=== PATIENT | male | born 1945 | race Caucasian/White ===

== ENCOUNTER 2022-10-29 07:14 | Emergency (ER) | payer MEDICARE, OTHER ==
[~2022-10-29] VITALS: Ht 177.8 cm; Wt 83.5 kg
--- NOTE | 2022-10-29 07:30 | NUR ---
RECEIVED PT 76 YRS male came by [place] from [facility] s/p fell down today and hitr lashay rojas
--- NOTE | 2022-10-29 07:45 | NUR ---
LT EYE LAURI AND JAE AROUND
--- NOTE | 2022-10-29 08:45 | NUR ---
TO CT GALLAGHER OF HEAD VIA [facility] VS
--- NOTE | 2022-10-29 09:31 | NUR ---
[facility] CALLED FOR TRANSPORT ETA 45 MINS PER TENZIN.
--- NOTE | 2022-10-29 10:08 | NUR ---
Patient discharged to home in stable condition. Written and verbal after care instructions given. Patient verbalizes understanding of instruction.
[2022-10-29 10:22] VITALS: BP 153/97
== END 2022-10-29 10:22 | disposition home or self-care (01) ==
LOC: ER 07:16
DX: S00.83XA Contusion of other part of head, initial encounter (principal); S49.92XA Unspecified injury of left shoulder and upper arm, initial encounter; I25.2 Old myocardial infarction; I10 Essential (primary) hypertension; E11.9 Type 2 diabetes mellitus without complications; Z88.0 Allergy status to penicillin; W07.XXXA Fall from chair, initial encounter; Y93.84 Activity, sleeping; Y92.89 Other specified places as the place of occurrence of the external cause; Y99.8 Other external cause status
CPT/HCPCS: 70450-TC; 71045-TC; 72125-TC; 73030-TC

== ENCOUNTER 2022-11-12 15:54 | Emergency (ER) | payer MEDICARE, OTHER ==
[~2022-11-12] VITALS: Ht 170.2 cm; Wt 79.8 kg
--- NOTE | 2022-11-12 16:33 | NUR ---
[id number] frm [facility] [address] c/o worsening Groin area pain. noted facial bruising from a previous fall. On room air, breathing evenly and unlabored. Kept comfortable will continue to monitor accordingly.
[2022-11-12 17:22] LABS: ALANINE AMINOTRANSFERASE 18 U/L (12-78); ALBUMIN 3.4 g/dL (3.4-5.0); ALKALINE PHOSPHATASE 105 U/L (46-116); ASPARTATE AMINOTRANSFERASE 24 U/L (15-37); BILIRUBIN,TOTAL 1.2 mg/dL (0.2-1.0); CALCIUM, SERUM 8.5 mg/dL (8.5-10.1); CARBON DIOXIDE 27 mmol/L (21-32); CHLORIDE 104 mmol/L (98-107); CREATININE 1.7 mg/dL (0.6-1.3); GLUCOSE 131 mg/dL (74-106); LIPASE 215 U/L (73-393); POTASSIUM 3.9 mmol/L (3.5-5.1); SODIUM SERUM 138 mmol/L (136-145); TOTAL PROTEIN, SERUM 6.7 g/dL (6.4-8.2); UREA NITROGEN, BLOOD 27 mg/dL (7-18)
[2022-11-12] MEDS ORDERED: IOHEXOL-300 100 ML VIAL IV ONE (17:39)
[2022-11-12] MEDS ORDERED: IV NS 0.9% 250 ML IV ONE (17:39)
[2022-11-12] MEDS ORDERED: IV NS 0.9% 1,000 ML IV ONE (18:00)
[2022-11-12 18:02] LABS: EOSINOPHILS % (AUTO) 1.1 % (0.0-6.0); HEMATOCRIT 36 % (39-51); LYMPHOCYTES # (AUTO) 0.5 K/uL (0.8-4.8); LYMPHOCYTES % (AUTO) 6.6 % (20.0-44.0); MEAN CORPUSCULAR HGB CONC 33 g/dl (31.0-36.0); MEAN CORPUSCULAR VOLUME 94 fL (80-96); MONOCYTES # (AUTO) 0.3 K/uL (0.1-1.30); MONOCYTES % (AUTO) 3.8 % (2.0-12.0); NEUTROPHILS # (AUTO) 6.4 K/uL (1.8-8.9); NEUTROPHILS % (AUTO) 88.5 % (43.0-81.0); PLATELET COUNT (AUTO) 205 K/uL (150-450); RED BLOOD CELL COUNT(AUTO) 3.87 MIL/uL (4.5-6.0); WHITE BLOOD COUNT (AUTO) 7.3 K/uL (4.3-11.0)
[2022-11-12 21:46] LABS: LYMPHOCYTES % (MANUAL) 15 % (16-48); MONOCYTES % (MANUAL) 7 % (0-11.0); NEUTROPHILS % (MANUAL) 78 (42-76)
[2022-11-12] MEDS ORDERED: LIDOCAINE 2% JEL UROJET 10 ML MM ONE (21:49)
--- NOTE | 2022-11-12 21:58 | NUR ---
URINE COLLECTED AND SENT TO LAB
--- NOTE | 2022-11-12 22:00 | NUR ---
PT CHANGED, NEEDS MET
[2022-11-12 22:43] LABS: BILIRUBIN,URINE NEGATIVE (NEGATIVE); COLOR,URINE YELLOW (YELLOW); LEUKOCYTE ESTERASE ,URINE NEGATIVE (NEGATIVE); NITRITE, URINE NEGATIVE (NEGATIVE); PH,URINE 7.5 (5.0-8.0); PROTEIN,URINE TRACE mg/dl (NEGATIVE); UGLUCOSE NEGATIVE (NEGATIVE); UROBILINOGEN,URINE 0.2 EU/dL (0.2)
[2022-11-12 23:41] LABS: BACTERIA,URINE Rare /HPF (None Seen); RBC,URINE 0-2 /HPF (0-2); SQUAMOUS EPITHELIAL CELL,UR Few /HPF (None Seen); WBC,URINE 0-2 /HPF (0-3)
--- NOTE | 2022-11-13 00:38 | NUR ---
REPORT GIVEN TO MICKY AT [facility]. [facility] ETA: 30 MIN
--- NOTE | 2022-11-13 01:45 | NUR ---
REPORT GIVEN TO EMT TRANSPORT. PATIENT IS VITALLY STABLE PRIOR TO TRANSPORT
[2022-11-13 01:52] VITALS: BP 122/88
--- NOTE | 2022-11-13 01:52 | NUR ---
Patient discharged to home in stable condition. Written and verbal after care instructions given. Patient verbalizes understanding of instruction.
== END 2022-11-13 01:53 ==
LOC: ER 16:14
DX: N20.0 Calculus of kidney (principal); E86.0 Dehydration; N28.9 Disorder of kidney and ureter, unspecified; N28.1 Cyst of kidney, acquired; R51.9 Headache, unspecified; R41.82 Altered mental status, unspecified; I10 Essential (primary) hypertension; I25.2 Old myocardial infarction; E11.9 Type 2 diabetes mellitus without complications; Z88.0 Allergy status to penicillin
CPT/HCPCS: 99285; 70450; 96360; 74177; 85025; 83690; 81001; 36415; 80053; 85007; J3490; J7030; J7050; Q9967

== ENCOUNTER 2022-12-23 01:04 | Emergency (ER) | payer MEDICARE, OTHER ==
[~2022-12-23] VITALS: Ht 180.3 cm; Wt 68.0 kg
[2022-12-23 01:41] VITALS: BP 117/66
--- NOTE | 2022-12-23 01:47 | NUR ---
DR. MERRILL ALBERTS AT PT'S BEDSIDE FOR EVAL
== END 2022-12-23 04:31 | disposition home or self-care (01) ==
LOC: ER 01:05
DX: K64.9 Unspecified hemorrhoids (principal); E11.9 Type 2 diabetes mellitus without complications; Z88.0 Allergy status to penicillin